=== PATIENT | male | born 1960 | race Caucasian/White ===

== ENCOUNTER 2023-09-04 09:19 | Emergency (ER) | payer SELFPAY ==
[~2023-09-04] VITALS: Ht 160 cm; Wt 91.2 kg
[2023-09-04 09:40] VITALS: BP 114/74; PULSE 125; RESP 22; TEMP 98.6; O2SAT 95
[2023-09-04 10:07] VITALS: PULSE 114; PULSE 115; RESP 22; RESP 24; O2SAT 97
[2023-09-04] MEDS: ALBUTEROL SULFATE/IPRATROPIU 3 ML SOL IH ONE (10:07)
[2023-09-04 10:16] LABS: BASOPHILS % (AUTO) 0.2 % (0.0-2.0); EOSINOPHILS % (AUTO) 0.9 % (0.0-4.0); HEMATOCRIT 40.2 % (36-52); HEMOGLOBIN 13.6 g/dL (12.0-18.0); LYMPHOCYTES # (AUTO) 0.3 K/uL (2.0-11.5); LYMPHOCYTES % (AUTO) 7.7 % (20.5-51.1); MEAN CORPUSCULAR HEMOGLOBIN 34 pg (27-31); MEAN CORPUSCULAR HGB CONC 34 g/dL (33-37); MEAN CORPUSCULAR VOLUME 99.4 fL (80-94); NEUTROPHILS # (AUTO) 3.5 K/uL (1.8-7.7); NEUTROPHILS % (AUTO) 90.2 % (42.2-75.2); PLATELET COUNT (AUTO) 125 K/uL (140-450); RED BLOOD CELL COUNT(AUTO) 4.04 MIL/uL (4.20-6.10); RED CELL DISTRIBUTION WIDTH 13.7 % (11.6-13.7)
[2023-09-04 10:17] LABS: WHITE BLOOD COUNT (AUTO) 3.8 K/uL (4.8-10.8)
[2023-09-04 10:34] LABS: ALBUMIN 3.6 g/dL (3.4-5.0); ANION GAP 15.4 (8-16); CALCIUM 7.9 mg/dL (8.5-10.1); CREATININE 1.2 mg/dL (0.6-1.3); POTASSIUM 3.4 mmol/L (3.5-5.1)
[2023-09-04 12:00] VITALS: BP 108/75; PULSE 127; RESP 21; TEMP 98; O2SAT 93
[2023-09-04 12:13] LABS: FLU A ANTIGEN negative (NEGATIVE); FLU B ANTIGEN negative (NEGATIVE)
== END 2023-09-04 14:05 | disposition left against medical advice (07) ==
LOC: MED 09:19
DX: I21.4 Non-ST elevation (NSTEMI) myocardial infarction (principal); Z20.822 Contact with and (suspected) exposure to COVID-19
CPT/HCPCS: 36415; 71045; 71275; 80053; 83880; 84484; 85025; 85379; 87426; 87804; 93005; 94640; 99291; J7030; Q9967